=== PATIENT | female | born 1950 | race Two or more races ===

== ENCOUNTER 2024-03-16 10:04 | Emergency (ER) | payer OTHER ==
[~2024-03-16] VITALS: Ht 170.2 cm; Wt 103.9 kg
[2024-03-16] MEDS ORDERED: CALCITRIOL0.25 MCG PO (10:33)
[2024-03-16] MEDS ORDERED: HYDROCHLOROTH12.5 M2 PO (10:33)
[2024-03-16] MEDS ORDERED: LISINOPRIL10 MG PO (10:33)
[2024-03-16] MEDS ORDERED: ALENDRONATE SOD70 MG PO (10:33)
[2024-03-16] MEDS ORDERED: ORPHENADRINE CITRATE 30 MG/ML AMPUL IM STA (12:29)
[2024-03-16] MEDS ORDERED: ORPHENADRINE CITRATE 100 MG TABLET PO STA (12:34)
== END 2024-03-16 12:49 | disposition home or self-care (01) ==
LOC: ER 10:04
DX: M54.9 Dorsalgia, unspecified (principal); I10 Essential (primary) hypertension; Z88.8 Allergy status to other drugs, medicaments and biological substances
CPT/HCPCS: 96372; 99282; J2360